=== PATIENT | female | born 1975 | race Hispanic/Latino ===

== ENCOUNTER 2023-02-02 01:44 | Emergency (ER) | payer OTHER ==
[~2023-02-02] VITALS: Ht 154.9 cm; Wt 64.9 kg
[2023-02-02] MEDS ORDERED: DEXAMETHASONE SOD PHOSPHATE 4 MG/ML 1ML VIAL IVP ONE (02:30)
[2023-02-02] MEDS ORDERED: MORPHINE 4 MG SYG IVP ONE (02:30)
[2023-02-02] MEDS ORDERED: CYCLOBENZAPRINE HCL 10 MG TABLET PO ONE (02:30)
[2023-02-02] MEDS ORDERED: GABAPENTIN 300 MG CAPSULE PO SCH (02:30)
[2023-02-02] MEDS ORDERED: PRED20TA3 PO (04:52)
[2023-02-02] MEDS ORDERED: OMEP40CA21 PO (04:52)
[2023-02-02] MEDS ORDERED: IBUP-1493 PO (04:52)
[2023-02-02] MEDS ORDERED: GABA300C PO (04:52)
[2023-02-02] MEDS ORDERED: CYCL-309 PO (04:52)
[2023-02-02 05:34] VITALS: BP 142/88; PULSE 66; RESP 18; O2SAT 99
== END 2023-02-02 05:36 | disposition home or self-care (01) ==
LOC: EDH 01:44
DX: M54.50 Low back pain, unspecified (principal); E11.9 Type 2 diabetes mellitus without complications; E78.00 Pure hypercholesterolemia, unspecified; I10 Essential (primary) hypertension; Z79.52 Long term (current) use of systemic steroids
CPT/HCPCS: 99285; 96374; 72131; 96375; 84703; 36415; J1100 ×2; J2270